=== PATIENT | male | born 1975 | race Hispanic/Latino ===

== ENCOUNTER 2023-02-09 10:40 | Emergency (ER) | payer SELFPAY ==
[2023-02-09] MEDS ORDERED: Proparacaine 0.5% Opth 15 ML BOT ONE (13:44)
== END 2023-02-09 14:35 | disposition home or self-care (01) ==
LOC: ERS 10:40
DX: R03.0 Elevated blood-pressure reading, without diagnosis of hypertension (principal)
CPT/HCPCS: 99283